=== PATIENT | male | born 1945 ===

== ENCOUNTER 2019-09-02 09:52 | Inpatient (IN) | payer MEDICARE, OTHER ==
[~2019-09-02] VITALS: Ht 170.2 cm; Wt 105.2 kg
[~2019-09-02 09:52] MED LIST: DRON400T PO; FINA5TAB4 PO; METF10002 PO; OXYC-306 PO; TAMS0.4C2 PO
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
--- NOTE | 2019-09-02 10:00 | NUR ---
MD IS AT THE BEDSIDE TO ASSESS.
[2019-09-02] MEDS ORDERED: METOPROLOL 1 MG/ML, 5ML ONE ×2 (10:06→11:19)
[2019-09-02] MEDS: METOPROLOL 1 MG/ML, 5ML IVPush PRN ×3 (10:17→11:22)
[2019-09-02] MEDS ORDERED: SODIUM CHLORIDE FLUSH 10ML SYR IVF ONE (10:30)
--- NOTE | 2019-09-02 10:30 | NUR ---
METOPROLOL GIVEN PER ERP ORDER. PT'S RATE RANGING FROM MID 120S TO 155 AFIB WITH RVR. PT STATES DISCOMFORT OF DIZZINESS RELIEVED FOLLOWING MEDICATION. RATE DECREASED TO 108 BUT FLUCTUATING. CONTINUE TO MONITOR. CALL LIGHT WITHIN REACH.
[2019-09-02 10:43] LABS: BASOPHILS % (AUTO) 0 % (0-1); EOSINOPHILS # (AUTO) 0.11 x10^3/uL (0-0.4); EOSINOPHILS % (AUTO) 1 % (1-7); LYMPHOCYTES # (AUTO) 0.96 x10^3/uL (1-3.4); LYMPHOCYTES % (AUTO) 12 % (22-44); MD NO; MEAN CORPUSCULAR HEMOGLOBIN 31.4 pg (27.5-34.5); MEAN CORPUSCULAR HGB CONC 33.7 g/dL (33.2-36.2); MEAN CORPUSCULAR VOLUME 93.2 fL (81-97); MEAN PLATELET VOLUME 8.8 fL (7.4-10.4); MONOCYTES # (AUTO) 0.55 x10^3/uL (0.2-0.8); MONOCYTES % (AUTO) 7 % (2-9); NEUTROPHILS % (AUTO) 79 % (42-75); PLATELET COUNT 231 x10^3/uL (130-400); RED BLOOD COUNT 5.05 x10^6/uL (4.38-5.82); RED CELL DISTRIBUTION WIDTH 13.2 % (9.4-14.8)
[2019-09-02 10:53] LABS: INTERNATIONAL NORMALIZED RATIO 1.07 (0.93-1.1); PROTHROMBIN TIME 11.4 Seconds (9.6-11.5)
[2019-09-02 10:54] LABS: ALANINE AMINOTRANSFERASE 14 U/L (12-78); ALBUMIN 3.5 g/dL (3.4-5.0); ANION GAP 8 mmol/L (5-15); CALCIUM 8.6 mg/dL (8.5-10.1); CHLORIDE 108 mmol/L (98-107); CREATININE 1.02 mg/dL (0.7-1.3)
[2019-09-02 10:58] LABS: ALKALINE PHOSPHATASE 84 U/L (45-117); BILIRUBIN,TOTAL 0.5 mg/dL (0.2-1.0); TOTAL PROTEIN 7.2 g/dL (6.4-8.2); TROPONIN I < 0.015 ng/mL (0.000-0.045)
--- NOTE | 2019-09-02 11:04 | NUR ---
2ND DOSE OF METOPROLOL GIVEN WITH DECREASE IN HR TO 102 THEN BACK UP TO 120S. WILL CONTINUE TO MONITOR. BP STABLE.
[2019-09-02] MEDS ORDERED: LISI-167 PO (11:28)
[2019-09-02] MEDS ORDERED: METF500T17 PO (11:28)
[2019-09-02] MEDS ORDERED: ACET650S21 PO (11:28)
[2019-09-02] MEDS ORDERED: CARVEDILOL 6.25 MG TABLET PO ONE (11:30)
--- NOTE | 2019-09-02 11:35 | NUR ---
MARISA IN TO SEE PT. Addendum: 09/02/19 at 1135 by JOSEPH MED REQUEST FOR COREG SENT TO PHARMACY.
[2019-09-02] MEDS ORDERED: CARV6.2512 PO (11:36)
[2019-09-02] MEDS ORDERED: morphine SULFATE 10 MG/ML, 1ML IVPush PRN (12:00)
--- NOTE | 2019-09-02 12:21 | NUR ---
REPORT TO ANTONIA ROSE, PT READY FOR TRANSPORT.
[2019-09-02] MEDS ORDERED: DILTIAZEM 5 MG/ML, 5ML ONE (13:57)
[2019-09-02] MEDS ORDERED: DILTIAZEM 5 MG/ML, 5ML IVPush ONE (14:00)
[2019-09-02] MEDS: ENOXAPARIN 40 MG/0.4 ML SQ SCH (14:00)
[2019-09-02 14:52] LABS: AMPHETAMINE SCREEN, URINE Negative (Negative); BARBITURATE SCREEN, URINE Negative (Negative); BENZODIAZEPINE SCREEN, URINE Negative (Negative); CANNABINOID SCREEN, URINE Negative (Negative); COCAINE SCREEN, URINE Negative (Negative); METHADONE SCREEN, URINE Negative (Negative); OPIATE SCREEN, URINE Negative (Negative)
[2019-09-02 15:18] LABS: TROPONIN I < 0.015 ng/mL (0.000-0.045)
[2019-09-02] MEDS: CARVEDILOL 12.5 MG TABLET PO SCH (16:49)
[2019-09-02] MEDS: INSULIN LISPRO 100 UNITS/ML, PEN SQ-INSULIN SCH ×2 (17:27→20:44)
[2019-09-02] MEDS: ACETAMINOPHEN 325 MG TABLET PO PRN (17:27)
[2019-09-02] MEDS ORDERED: CARVEDILOL 6.25 MG TABLET PO SCH (18:00)
[2019-09-02] MEDS: metFORMIN 500 MG TABLET PO SCH (20:44)
[2019-09-02 21:15] VITALS: BP 106/75
[2019-09-03 01:38] VITALS: BP 139/83
[2019-09-03 04:33] VITALS: BP 133/79
[2019-09-03] MEDS: CARVEDILOL 12.5 MG TABLET PO SCH ×2 (04:35→18:24)
[2019-09-03 04:50] LABS: BASOPHILS # (AUTO) 0.02 x10^3/uL (0-0.1); BASOPHILS % (AUTO) 0 % (0-1); EOSINOPHILS # (AUTO) 0.13 x10^3/uL (0-0.4); EOSINOPHILS % (AUTO) 2 % (1-7); LYMPHOCYTES % (AUTO) 16 % (22-44); MD NO; MEAN CORPUSCULAR HEMOGLOBIN 31.3 pg (27.5-34.5); MEAN CORPUSCULAR HGB CONC 33.4 g/dL (33.2-36.2); MEAN CORPUSCULAR VOLUME 93.7 fL (81-97); MEAN PLATELET VOLUME 8.7 fL (7.4-10.4); MONOCYTES # (AUTO) 0.63 x10^3/uL (0.2-0.8); MONOCYTES % (AUTO) 7 % (2-9); NEUTROPHILS # (AUTO) 6.45 x10^3/uL (1.8-6.8); NEUTROPHILS % (AUTO) 75 % (42-75); PLATELET COUNT 218 x10^3/uL (130-400); RED BLOOD COUNT 5.08 x10^6/uL (4.38-5.82); RED CELL DISTRIBUTION WIDTH 13.6 % (9.4-14.8)
[2019-09-03 05:01] LABS: ANION GAP 7 mmol/L (5-15); CHLORIDE 107 mmol/L (98-107); CREATININE 0.98 mg/dL (0.7-1.3)
[2019-09-03 07:08] VITALS: BP 118/72
[2019-09-03] MEDS: INSULIN LISPRO 100 UNITS/ML, PEN SQ-INSULIN SCH ×4 (07:50→21:00)
[2019-09-03] MEDS: FUROSEMIDE 40 MG/4 ML IV SCH (08:42)
[2019-09-03] MEDS: LISINOPRIL 10 MG TABLET PO SCH (08:42)
[2019-09-03] MEDS: metFORMIN 500 MG TABLET PO SCH ×2 (08:42→22:19)
[2019-09-03] MEDS ORDERED: DILTIAZEM 125 MG in SODIUM CHLORIDE 0.9% 100 ML IV SCH (09:30)
[2019-09-03] MEDS: DILTIAZEM 125 MG in SODIUM CHLORIDE 0.9% 100 ML IV SCH ×2 (09:51→22:18)
[2019-09-03 13:41] VITALS: BP 94/61
[2019-09-03] MEDS: ENOXAPARIN 40 MG/0.4 ML SQ SCH (16:14)
[2019-09-03 16:21] VITALS: BP 107/77
[2019-09-03 19:06] VITALS: BP 103/71
[2019-09-03] MEDS: ENOXAPARIN 100 MG/ML SQ SCH (22:18)
[2019-09-04 01:36] VITALS: BP 117/75
[2019-09-04] MEDS: CARVEDILOL 12.5 MG TABLET PO SCH ×2 (06:16→17:14)
[2019-09-04 07:35] VITALS: BP 109/66
[2019-09-04] MEDS: INSULIN LISPRO 100 UNITS/ML, PEN SQ-INSULIN SCH ×4 (07:39→21:00)
[2019-09-04] MEDS: metFORMIN 500 MG TABLET PO SCH ×2 (07:56→22:03)
[2019-09-04] MEDS: ACETAMINOPHEN 325 MG TABLET PO PRN (07:56)
[2019-09-04] MEDS: ENOXAPARIN 100 MG/ML SQ SCH ×2 (07:56→22:03)
[2019-09-04] MEDS: FUROSEMIDE 40 MG/4 ML IV SCH (07:56)
[2019-09-04] MEDS: LISINOPRIL 10 MG TABLET PO SCH (07:56)
[2019-09-04] MEDS: DILTIAZEM 60 MG TABLET PO SCH ×4 (08:01→22:03)
[2019-09-04 09:33] LABS: ANION GAP 9 mmol/L (5-15); CALCIUM 8.9 mg/dL (8.5-10.1); CHLORIDE 105 mmol/L (98-107); CREATININE 1.19 mg/dL (0.7-1.3)
[2019-09-04] MEDS ORDERED: MINO100T2 PO (11:22)
[2019-09-04] MEDS ORDERED: CYCL1DRO EACHEYE (11:22)
[2019-09-04 15:35] VITALS: BP 97/61
[2019-09-04 17:11] VITALS: BP 108/69
[2019-09-04 19:44] VITALS: BP 92/61
[2019-09-05 01:47] VITALS: BP 97/58
[2019-09-05] MEDS ORDERED: ASPIRIN 81 MG TABLET EC PO SCH (06:00)
[2019-09-05] MEDS: DILTIAZEM 60 MG TABLET PO SCH ×2 (06:14→12:21)
[2019-09-05 07:52] VITALS: BP 100/66
[2019-09-05] MEDS: INSULIN LISPRO 100 UNITS/ML, PEN SQ-INSULIN SCH ×2 (08:01→11:00)
[2019-09-05] MEDS ORDERED: CARVEDILOL 6.25 MG TABLET PO SCH ×2 (09:00→18:00)
[2019-09-05] MEDS ORDERED: SPIRONOLACTONE 25 MG TABLET PO SCH (09:00)
[2019-09-05] MEDS ORDERED: FUROSEMIDE 40 MG TABLET PO SCH ×2 (09:00)
[2019-09-05] MEDS: ENOXAPARIN 100 MG/ML SQ SCH (09:24)
[2019-09-05] MEDS: metFORMIN 500 MG TABLET PO SCH (09:24)
[2019-09-05] MEDS: LISINOPRIL 10 MG TABLET PO SCH (09:24)
[2019-09-05] MEDS ORDERED: FUROSEMIDE 20 MG TABLET PO SCH (09:30)
[2019-09-05] MEDS ORDERED: SPIR25TA PO (11:25)
[2019-09-05] MEDS ORDERED: LISI-167 PO (11:25)
[2019-09-05] MEDS ORDERED: FURO20TA3 PO (11:25)
[2019-09-05] MEDS ORDERED: DILT120C11 PO (11:25)
[2019-09-05] MEDS ORDERED: CARV6.2512 PO (11:25)
[2019-09-05] MEDS ORDERED: ASPI81TA45 PO (11:25)
[2019-09-05 12:20] VITALS: BP 107/81
== END 2019-09-05 14:40 | disposition home or self-care (01) | DRG 308 ==
LOC: ED 10:07 → EDIP 11:14 → 5SO 12:56 → DCLOUNGE 09-05 14:34
PROVIDERS: ADMIT Internal Medicine Infectious Disease; ATTEND Hospitalist
DX: I48.19 Other persistent atrial fibrillation (principal); I50.23 Acute on chronic systolic (congestive) heart failure; E87.1 Hypo-osmolality and hyponatremia; I11.0 Hypertensive heart disease with heart failure; I07.1 Rheumatic tricuspid insufficiency; E11.9 Type 2 diabetes mellitus without complications; F41.9 Anxiety disorder, unspecified; Z96.641 Presence of right artificial hip joint; Z96.653 Presence of artificial knee joint, bilateral; R55 Syncope and collapse; I25.10 Atherosclerotic heart disease of native coronary artery without angina pectoris; I25.2 Old myocardial infarction; Z79.899 Other long term (current) drug therapy; Z91.14 Patient's other noncompliance with medication regimen; Z95.0 Presence of cardiac pacemaker
CPT/HCPCS: 36415; 71045; 80048; 80053; 80307; 82962; 83036; 83735; 83880; 84100; 84443; 84484; 85025; 85610; 85730; 93005; 99285; C8929; G0378; J1650; J1940; Q9957; J1815